=== PATIENT | female | born 1955 | race Caucasian/White ===

== ENCOUNTER 2017-01-09 16:24 | Inpatient (IN) | payer OTHER ==
[2017-01-09] VITALS (7 sets, daily range): BP systolic 96–126; BP diastolic 53–60; PULSE 69–113; RESP 17–19; TEMP 95.9–98.1; O2SAT 95–100
[~2017-01-09] VITALS: Ht 170.2 cm; Wt 75.7 kg
[~2017-01-09 16:24] MED LIST: ASPI81TA82 PO; CARV6.252 PO; COUM5TAB PO; CYMB30CA PO; ENOX60P SQ; GLUCTAB PO; HYDR-3133 PO; HYDR-3533 PO; LEVEMIR SQ; LISI-360 PO; MINI2CAP PO; SIMV40 PO
[2017-01-09] MEDS ORDERED: SODIUM CHLOR 0.9% 1000 ML INJ 1,000 ML IV SCH (16:50)
[2017-01-09] MEDS ORDERED: PANTOPRAZOLE INJ 80 MG in SODIUM CHLORIDE 0.9% INJ 100 ML IV SCH (16:50)
[2017-01-09] MEDS ORDERED: PANTOPRAZOLE INJ 80 MG in SODIUM CHLORIDE 0.9% INJ 35 ML IV ONE (16:50)
[2017-01-09] MEDS ORDERED: SODIUM CHLORIDE 0.9% FLUSH 10 ML FLUSH IVF PRN (17:00)
[2017-01-09] MEDS ORDERED: ONDANSETRON HCL 4 MG/2 ML VIAL IVP ONE (17:00)
[2017-01-09 17:19] LABS: AUTOMATED NEUTROPHIL # 4.3 TH/MM3 (1.8-7.7); BASOPHIL % 0.5 % (0.0-2.0); EOSINOPHIL # 0.2 TH/MM3 (0-0.4); EOSINOPHIL % 2.6 % (0.0-4.0); LYMPH % 29.1 % (9.0-44.0); LYMPHOCYTE # 2.1 TH/MM3 (1.0-4.8); MEAN CELL VOLUME 90.6 FL (80.0-100.0); MEAN CORPUSCULAR HEMOGLOBIN 29.8 PG (27.0-34.0); MEAN CORPUSCULAR HGB CONC 32.9 % (32.0-36.0); MONO % 8.7 % (0.0-8.0); NEUT % 59.1 % (16.0-70.0); PLATELET COUNT 245 TH/MM3 (150-450); RED BLOOD COUNT 2.08 MIL/MM3 (4.00-5.30); RED CELL DISTRIBUTION WIDTH 14.2 % (11.6-17.2); WHITE BLOOD COUNT 7.2 TH/MM3 (4.0-11.0)
[2017-01-09 17:22] LABS: HEMO FLAGS AUTO DIFF
[2017-01-09 17:24] LABS: BLOOD, URINE NEG (NEG); GLUCOSE,URINE 1000 mg/dL (NEG); KETONE, URINE NEG (NEG); NITRITE,URINE NEG (NEG); PH, URINE 5.5 (5.0-8.5); SQUAMOUS EPITHELIAL CELL URINE <1 /hpf (0-5); URINE COLOR YELLOW (YELLW/STRAW)
[2017-01-09] MEDS ORDERED: SIMV40TA PO (17:24)
[2017-01-09] MEDS ORDERED: DULO1CAP3 PO (17:24)
[2017-01-09] MEDS ORDERED: CARV6.252 PO (17:24)
[2017-01-09] MEDS ORDERED: NOVOLOGP2 SQ (17:24)
[2017-01-09] MEDS ORDERED: WARF-23 PO (17:24)
[2017-01-09] MEDS ORDERED: FENO48TA PO (17:24)
[2017-01-09] MEDS ORDERED: PRAZ5CAP PO (17:24)
[2017-01-09] MEDS ORDERED: LISI10TA3 PO (17:24)
[2017-01-09] MEDS ORDERED: HYDR-3516 PO (17:24)
[2017-01-09 17:25] LABS: CULTURE IF INDICATED CULT NOT INDICATED; HEMATOCRIT 18.8 % (35.0-46.0)
[2017-01-09 17:32] LABS: APTT (PATIENT) 21.5 SEC (24.3-30.1); PROTHROMBIN TIME - PATIENT 10.9 SEC (9.8-11.6)
[2017-01-09] MEDS ORDERED: HYDR-3133 PO (17:32)
[2017-01-09] MEDS ORDERED: ASPI81CH6 CHEW (17:32)
[2017-01-09] MEDS ORDERED: FISH500C PO (17:32)
[2017-01-09] MEDS ORDERED: FLUT55AE INH (17:32)
[2017-01-09] MEDS ORDERED: CORICAP PO (17:32)
[2017-01-09 17:38] LABS: ANION GAP 9 MEQ/L (5-15); AST (GOT) 18 U/L (15-37); BICARBONATE 24.7 MEQ/L (21.0-32.0); BLOOD UREA NITROGEN 19 MG/DL (7-18); CHLORIDE 104 MEQ/L (98-107); GLOMERULAR FILTRATION RATE 58 ML/MIN (>89); POTASSIUM 3.8 MEQ/L (3.5-5.1); SODIUM (NA) 138 MEQ/L (136-145)
[2017-01-09 17:39] LABS: ALT (GPT) 22 U/L (10-53)
[2017-01-09 17:41] LABS: ALKALINE PHOSPHATASE 49 U/L (45-117); TOTAL BILIRUBIN ADULT 0.4 MG/DL (0.2-1.0)
[2017-01-09] MEDS ORDERED: SODIUM CHLOR 0.9% 250 ML INJ 250 ML IV ONE (17:45)
[2017-01-09 17:56] LABS: PLATELET ESTIMATE SMEAR NORMAL (NORMAL); PLATELET MORPHOLOGY NORMAL (NORMAL); SCAN/DIFF AUTO DIFF CONFIRMED
--- NOTE | 2017-01-09 18:05 | PD ---
HPI Chief Complaint: Abnormal Results Time Seen by Provider: 16:34 Travel History International Travel<30 days: No Contact w/Intl Traveler<30days: No Traveled to known affect area: No History of Present Illness HPI Patient is a 61 year old female, on Coumadin, who comes in due to abnormal results. She is on Coumadin for an artificial valve, but has not been taking it for the past week when she was told her INR was 6. She says she had a CBC drawn that showed she had a Hgb of 5.8 and was told to come to the ED. Her says she has been very pale. She reports feeling tired and occasionally dizzy. She denies chest pain or SOB. She says she has not noticed blood in her stool. She denies any nausea or vomiting or abdominal pain. PFSH Past Medical History Hx Anticoagulant Therapy: Yes Heart Rhythm Problems: No Cancer: No Cardiovascular Problems: Yes High Cholesterol: Yes Cerebrovascular Accident: Yes Diabetes: Yes Patient Takes Glucophage: No Endocrine: Yes Genitourinary: No Hepatitis: No Hypertension: Yes Immune Disorder: No Neurologic: Yes Psychiatric: Yes (depression ) Reproductive: No Respiratory: No Seizures: Yes Thyroid Disease: No Past Surgical History Body Medical Devices: aortic valve replacement hardware in left elbow and bilateral leg. Cardiac Surgery: Yes (aortic valve replacement 1996) Insulin Pump: Yes Pacemaker: No Other Surgery: Yes Social History Alcohol Use: No Tobacco Use: No Substance Use: No Allergies-Medications (Allergen,Severity, Reaction): Coded Allergies: sulfamethoxazole (Unverified Allergy, Intermediate, black stool and 4 pills made her sick, 10/04/16) trimethoprim (Unverified Allergy, Intermediate, black stool and 4 pills made her sick, 10/04/16) Reported Meds & Prescriptions Reported Meds & Active Scripts Active Reported Aspirin Low Dose (Aspirin) 81 Mg Chew 81 Mg CHEW DAILY Coricidin HBP Chest Congestion (Dextromethorphan-Guaifenesin) 10-200 Mg Cap 1 Cap PO Q4H PRN Fish Oil ([place]-3 Fatty Acids) 60 Mg-90 Mg-500 Mg Cap 1,000 Mg PO DAILY [place] Respiclick Inh (Fluticasone Propionate) 55 Mcg/Actuation Aer.pow.ba 50 Mg INH BID Hydroxyzine HCl 25 Mg Tab 25 Mg PO BID PRN Fenofibrate 48 Mg Tab 48 Mg PO DAILY Simvastatin 40 Mg Tab 40 Mg PO HS Carvedilol 6.25 Mg Tab 6.25 Mg PO BID Warfarin 5 Mg Tab 5 Mg PO DAILY Hydrocodone-Acetamin 5-325 mg (Hydrocodone/Acetaminophen) 5 Mg-325 Mg Tablet 5- 325 Mg PO TID Lisinopril 10 Mg Tab 10 Mg PO DAILY Prazosin (Prazosin HCl) 5 Mg Cap 5 Mg PO HS Duloxetine DR (Duloxetine HCl) 60 Mg Capdr 60 Mg PO DAILY Novolog Inj (Insulin Aspart) 1,000 Unit/10 Ml Vial 90 Units SQ ONCE Review of Systems Except as stated in HPI: all other systems reviewed are Neg General / Constitutional: No: Fever, Chills Eyes: No: Blurred Vision HENT: Positive: Lightheadedness, No: Headaches Cardiovascular: No: Chest Pain or Discomfort Respiratory: No: Shortness of Breath Gastrointestinal: No: Nausea, Vomiting, Abdominal Pain Genitourinary: No: Dysuria, Hematuria Skin: Positive Change in Pigmentation, No Rash Neurologic: Positive: Dizziness, No: Syncope Physical Exam Narrative GENERAL: Awake and alert, in no acute distress. SKIN: Focused skin assessment warm/dry. Appears pale. HEAD: Atraumatic. Normocephalic. EYES: Pupils equal and round. No scleral icterus. EOMI ENT: Mucous membranes pink and moist. NECK: Trachea midline. No JVD. CARDIOVASCULAR: Regular rate and rhythm. No murmur appreciated. RESPIRATORY: No accessory muscle use. Clear to auscultation. Breath sounds equal bilaterally. GASTROINTESTINAL: Abdomen soft, non-tender, nondistended. MUSCULOSKELETAL: No obvious deformities. No clubbing. No cyanosis. No edema. NEUROLOGICAL: Awake and alert. No obvious cranial nerve deficits. Motor grossly within normal limits. Normal speech. PSYCHIATRIC: Appropriate mood and affect; insight and judgment normal. Data Data Last Documented VS Vital Signs Date Time Temp Pulse Resp B/P (MAP) Pulse Ox O2 Delivery O2 Flow Rate FiO2 01/09/17 17:00 90 18 01/09/17 16:50 98 01/09/17 16:27 98.1 Room Air Orders Orders Complete Blood Count With Diff (01/09/17 16:50) Comprehensive Metabolic Panel (01/09/17 16:50) Prothrombin Time / Inr (Pt) (01/09/17 16:50) Act Partial Throm Time (Ptt) (01/09/17 16:50) Urinalysis - C+S If Indicated (01/09/17 16:50) Type And Screen (01/09/17 16:50) Ecg Monitoring (01/09/17 16:50) Iv Access Insert/Monitor (01/09/17 16:50) Oximetry (01/09/17 16:50) Ondansetron Inj (Zofran Inj) (01/09/17 17:00) Sodium Chlor 0.9% 1000 Ml Inj (Ns 1000 M (01/09/17 16:50) Sodium Chloride 0.9% Flush (Ns Flush) (01/09/17 17:00) Sodium Chloride 0.9... W/Pantoprazole In (01/09/17 16:50) Sodium Chloride 0.9... W/Pantoprazole In (01/09/17 16:50) Red Blood Cells (Rbc) (01/09/17 17:33) Blood Product Administration (01/09/17 17:33) Sodium Chlor 0.9% 250 Ml Inj (Ns 250 Ml (01/09/17 17:45) Labs Laboratory Tests Test 01/09/17 16:55 White Blood Count 7.2 TH/MM3 Red Blood Count 2.08 MIL/MM3 Hemoglobin 6.2 GM/DL Hematocrit 18.8 % Mean Corpuscular Volume 90.6 FL Mean Corpuscular Hemoglobin 29.8 PG Mean Corpuscular Hemoglobin Concent 32.9 % Red Cell Distribution Width 14.2 % Platelet Count 245 TH/MM3 Mean Platelet Volume 9.5 FL Neutrophils (%) (Auto) 59.1 % Lymphocytes (%) (Auto) 29.1 % Monocytes (%) (Auto) 8.7 % Eosinophils (%) (Auto) 2.6 % Basophils (%) (Auto) 0.5 % Neutrophils # (Auto) 4.3 TH/MM3 Lymphocytes # (Auto) 2.1 TH/MM3 Monocytes # (Auto) 0.6 TH/MM3 Eosinophils # (Auto) 0.2 TH/MM3 Basophils # (Auto) 0.0 TH/MM3 CBC Comment AUTO DIFF Prothrombin Time 10.9 SEC Prothromb Time International Ratio 1.0 RATIO Activated Partial Thromboplast Time 21.5 SEC Urine Color YELLOW Urine Turbidity CLEAR Urine pH 5.5 Urine Specific [place] 1.011 Urine Protein NEG mg/dL Urine Glucose (UA) 1000 mg/dL Urine Ketones NEG mg/dL Urine Occult Blood NEG Urine Nitrite NEG Urine Bilirubin NEG Urine Urobilinogen LESS THAN 2.0 MG/DL Urine Leukocyte Esterase MOD Urine RBC LESS THAN 1 /hpf Urine WBC 4 /hpf Urine Squamous Epithelial Cells <1 /hpf Blood Urea Nitrogen 19 MG/DL Creatinine 0.98 MG/DL Random Glucose 152 MG/DL Total Protein 7.3 GM/DL Albumin 3.9 GM/DL Calcium Level 9.1 MG/DL Alkaline Phosphatase 49 U/L Aspartate Amino Transf (AST/SGOT) 18 U/L Alanine Aminotransferase (ALT/SGPT) 22 U/L Total Bilirubin 0.4 MG/DL Sodium Level 138 MEQ/L Potassium Level 3.8 MEQ/L Chloride Level 104 MEQ/L Carbon Dioxide Level 24.7 MEQ/L Anion Gap 9 MEQ/L Estimat Glomerular Filtration Rate 58 ML/MIN MDM Medical Decision Making Medical Screen Exam Complete: Yes Emergency Medical Condition: Yes Medical Record Reviewed: Yes Differential Diagnosis GI bleed versus anemia versus coagulopathy Narrative Course Patient is a 61-year-old female who comes in due to a low hemoglobin. She is occult blood positive on exam. IV established, labs sent. Labs show a Hgb of 6.2. INR is 1.0. 2 units of blood ordered. Given Protonix. Patient admitted for further management. HemaPrompt Point of Care Internal Pos. & Neg. Controls: Passed Fecal Specimen Occult Blood: Positive Diagnosis Primary Impression: GI bleed Qualified Codes: K92.2 - Gastrointestinal hemorrhage, unspecified Additional Impression: Anemia Qualified Codes: D64.9 - Anemia, unspecified Admitting Information Admitting Physician Requests: Admit Tierra Benjamin MD Jan 09, 2017 18:05
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
[2017-01-09] MEDS ORDERED: SODIUM CHLORIDE 0.9% FLUSH 10 ML FLUSH IV FLUSH PRN (20:45)
[2017-01-09] MEDS: INSULIN ASPART SUPPLEMENTAL SCALE SQ SCH (21:00)
[2017-01-09] MEDS ORDERED: FLUTICASONE PROPIONATE INH SCH (21:00)
[2017-01-09] MEDS: hydrOXYzine HCL 25 MG TAB PO PRN (22:19)
[2017-01-09] MEDS: PRAVASTATIN SOD 80 MG TAB PO SCH (22:20)
[2017-01-09] MEDS: SODIUM CHLORIDE 0.9% FLUSH 10 ML FLUSH IV FLUSH SCH (22:20)
[2017-01-09] MEDS: ACETAMINOPHEN/HYDROcodone 325 MG/5 MG TAB PO PRN (22:20)
[2017-01-09] MEDS: INSULIN DETEMIR 100 UNITS/ML VIAL SQ SCH (22:28)
[2017-01-10] VITALS (8 sets, daily range): BP systolic 93–168; BP diastolic 55–77; PULSE 69–90; RESP 16–18; TEMP 95.2–98.7; O2SAT 92–98
[2017-01-10 05:55] LABS: HEMATOCRIT 24.8 % (35.0-46.0); REVIEW FLAG FINAL
[2017-01-10 06:14] LABS: ALKALINE PHOSPHATASE 45 U/L (45-117); ALT (GPT) 20 U/L (10-53); ANION GAP 9 MEQ/L (5-15); AST (GOT) 18 U/L (15-37); BICARBONATE 24.3 MEQ/L (21.0-32.0); BLOOD UREA NITROGEN 13 MG/DL (7-18); CHLORIDE 109 MEQ/L (98-107); GLOMERULAR FILTRATION RATE 69 ML/MIN (>89); SODIUM (NA) 142 MEQ/L (136-145); TOTAL BILIRUBIN ADULT 1.7 MG/DL (0.2-1.0)
[2017-01-10] MEDS: INSULIN DETEMIR 100 UNITS/ML VIAL SQ SCH ×2 (08:56→22:24)
[2017-01-10] MEDS: PANTOPRAZOLE SOD 40 MG DELAYED RELEASE TAB PO SCH (08:56)
[2017-01-10] MEDS: FENOFIBRATE 48 MG TAB PO SCH (08:56)
[2017-01-10] MEDS: DULoxetine HCl DR 60 MG CAP PO SCH (08:56)
[2017-01-10] MEDS: ACETAMINOPHEN/HYDROcodone 325 MG/5 MG TAB PO PRN ×2 (08:56→15:10)
[2017-01-10] MEDS: SODIUM CHLORIDE 0.9% FLUSH 10 ML FLUSH IV FLUSH SCH ×2 (08:57→20:34)
[2017-01-10] MEDS: INSULIN ASPART SUPPLEMENTAL SCALE SQ SCH ×4 (08:57→21:00)
--- NOTE | 2017-01-10 09:02 | HHI.PR ---
Subjective Remarks No new complaints. Objective Vitals Vital Signs Date Time Temp Pulse Resp B/P (MAP) Pulse Ox O2 Delivery O2 Flow Rate FiO2 01/10/17 04:00 97.4 76 18 100/58 (72) 95 01/10/17 00:58 98.4 84 17 93/56 92 01/10/17 00:00 98.0 83 18 111/58 (75) 93 01/09/17 22:29 97.5 92 18 105/56 96 01/09/17 22:08 95 01/09/17 22:04 96.8 106 19 126/60 01/09/17 20:30 95.9 108 18 120/57 (78) 100 01/09/17 20:00 01/09/17 19:21 69 18 96/53 (67) 100 01/09/17 17:00 90 18 01/09/17 16:50 91 18 98 01/09/17 16:27 98.1 113 17 109/58 (75) 100 Room Air Result Diagram: 01/10/175 01/10/17 0445 Other Results Laboratory Tests Test 01/09/17 16:55 01/10/17 04:45 White Blood Count 7.2 TH/MM3 Red Blood Count 2.08 MIL/MM3 Hemoglobin 6.2 GM/DL 8.4 GM/DL Hematocrit 18.8 % 24.8 % Mean Corpuscular Volume 90.6 FL Mean Corpuscular Hemoglobin 29.8 PG Mean Corpuscular Hemoglobin Concent 32.9 % Red Cell Distribution Width 14.2 % Platelet Count 245 TH/MM3 Mean Platelet Volume 9.5 FL Neutrophils (%) (Auto) 59.1 % Lymphocytes (%) (Auto) 29.1 % Monocytes (%) (Auto) 8.7 % Eosinophils (%) (Auto) 2.6 % Basophils (%) (Auto) 0.5 % Neutrophils # (Auto) 4.3 TH/MM3 Lymphocytes # (Auto) 2.1 TH/MM3 Monocytes # (Auto) 0.6 TH/MM3 Eosinophils # (Auto) 0.2 TH/MM3 Basophils # (Auto) 0.0 TH/MM3 CBC Comment AUTO DIFF Differential Comment AUTO DIFF CONFIRMED Platelet Estimate NORMAL Platelet Morphology Comment NORMAL Prothrombin Time 10.9 SEC Prothromb Time International Ratio 1.0 RATIO Activated Partial Thromboplast Time 21.5 SEC Urine Color YELLOW Urine Turbidity CLEAR Urine pH 5.5 Urine Specific [place] 1.011 Urine Protein NEG mg/dL Urine Glucose (UA) 1000 mg/dL Urine Ketones NEG mg/dL Urine Occult Blood NEG Urine Nitrite NEG Urine Bilirubin NEG Urine Urobilinogen LESS THAN 2.0 MG/DL Urine Leukocyte Esterase MOD Urine RBC LESS THAN 1 /hpf Urine WBC 4 /hpf Urine Squamous Epithelial Cells <1 /hpf Blood Urea Nitrogen 19 MG/DL 13 MG/DL Creatinine 0.98 MG/DL 0.84 MG/DL Random Glucose 152 MG/DL 156 MG/DL Total Protein 7.3 GM/DL 5.9 GM/DL Albumin 3.9 GM/DL 3.1 GM/DL Calcium Level 9.1 MG/DL 8.1 MG/DL Alkaline Phosphatase 49 U/L 45 U/L Aspartate Amino Transf (AST/SGOT) 18 U/L 18 U/L Alanine Aminotransferase (ALT/SGPT) 22 U/L 20 U/L Total Bilirubin 0.4 MG/DL 1.7 MG/DL Sodium Level 138 MEQ/L 142 MEQ/L Potassium Level 3.8 MEQ/L 4.0 MEQ/L Chloride Level 104 MEQ/L 109 MEQ/L Carbon Dioxide Level 24.7 MEQ/L 24.3 MEQ/L Anion Gap 9 MEQ/L 9 MEQ/L Estimat Glomerular Filtration Rate 58 ML/MIN 69 ML/MIN Objective Remarks General: NAD, AAOx3 Chest: CTA Cardiac: Regular Abd: +BS, soft ND/NT Ext: No edema A/P Problem List: (1) GI bleed ICD Codes: K92.2 - Gastrointestinal hemorrhage, unspecified Status: Acute Plan: - Pt is a 61 y/o female with type 1 diabetes on insulin pump, hx of mechanical aortic valve (placed in 1996) on chronic anticoagulation with Coumadin. - She was sent to the ED on 01/09/17 for anemia. - It is noted that her INR was 6.2 on January 05 and was instructed to hold her warfarin. Repeat INR on 01/09 with INR 1.0, but her hemoglobin was down to 5.8. - Pt complained of fatigue, shortness of breath and palpitations since of last week. She reports feeling tired and occasionally dizzy. - Repeat hemoglobin in the ED was 6. - Pt noted to be Hemoccult positive in the ED with reported dark stools - Pts last EGD/colonoscopy was 08/21/2014 for anemia and GIB which noted gastritis , hiatal hernia, polyps in the hepatic flexure and the rectum, and internal hemorrhoids. - She had an outpt capsule endoscopy (10/01/2014) --> which noted thick folds in the jejunum and possible healed ulcer in the jejunum - Pt has been transfused with 2 units of PRBCs - Case d/w GI Service. Pt will undergo EGD/Colonoscopy 01/11 - will give lovenox 70mg once, re: artificial valve - Repeat Hgb (01/10) is 8.4 - Pt is on Protonix 40mg po daily - Monitor H/H closely - Supportive care (2) Anemia ICD Codes: D64.9 - Anemia, unspecified Status: Acute Plan: - See above (3) Mechanical heart valve present ICD Codes: Z95.2 - Presence of prosthetic heart valve Status: Chronic Plan: - EGD/colonoscopy 01/11 - lovenox 70mg once - Pt will likely need bridging with Lovenox as soon as his GI procedures done and resumption of warfarin. (4) Type 1 diabetes ICD Codes: E10.9 - Type 1 diabetes mellitus without complications Status: Chronic Plan: - NovoLog SSI - Levemir 5 units Q12H - Accu checks - Her last Hgb A1c was 6.7 December 09, 2016 - Pt was recently started on insulin pump which will be disabled during hospital stay. (5) Anxiety ICD Codes: F41.9 - Anxiety disorder, unspecified Plan: - Continue home medication (6) Lumbar radiculopathy ICD Codes: M54.16 - Radiculopathy, lumbar region Plan: - Continue home meds (7) Hypertension ICD Codes: I10 - Essential (primary) hypertension Plan: Medication for now as blood pressure systolically is in the low 100s. Assessment and Plan Patient examined. Assessment and plan formulated with Vanessa Darden PA-C. I agree with the above. - Case d/w GI service - EGD/Colonoscopy 01/11 - lovenox 70mg once - Pt will need to be placed on lovenox following endoscopy until coumadin is again therapeutic - follow Hg level - serial CBCs Problem Qualifiers (1) GI bleed: Qualified Codes: K92.2 - Gastrointestinal hemorrhage, unspecified (2) Anemia: Qualified Codes: D64.9 - Anemia, unspecified (3) Hypertension: Qualified Codes: I10 - Essential (primary) hypertension Vanessa Darden Jan 10, 2017 09:02 Harry Pierre DO Jan 10, 2017 11:02
--- NOTE | 2017-01-10 11:48 | PD.CONS ---
HPI History of Present Illness This is a 61 year old female who is on chronic anticoagulation with Coumadin for mechanical heart valve and was referred to the emergency room for evaluation of abnormal labs with anemia. She was told that she had an INR of 6.0 about a week ago and has been off of her coumadin. On admission, she was noted to have an H/H of 6.2/18.8. INR 1.0. She was given 2 units of PRBC and her HH is currently 8.4/24.8. She was evaluated with EGD and colonoscopy () and this revealed gastritis in the antrum, retroflexion views revealed a hiatal hernia, diminutive polyp at the hepatic flexure, cold biopsy with complete removal, diminutive polyps in the rectum, s/p removal, internal hemorrhoids. Pathology noted gastric antral mucosa without significant histologic abnormality, fracture polyp was colonic mucosa without significant histologic abnormality, rectal polyp was hyperplastic. It is recommended that she have a capsule endoscopy and repeat colonoscopy in 3 years. She then had a capsule endoscopy (10/01/14) and this revealed thick folds of jejunum, possible healed ulcer in the jejunum. It was recommended that she have an enteroscopy with jejunal biopsy, celiac panel, and IBD panel. Celiac panel was negative. I do not see where the IBD panel was done and she did not follow up for enteroscopy. She reports that last Monday she had an elevated INR fo 6.0 and she stopped her Coumadin. She has since been having generalized weakness and some shortness of breath with exertion, but no obvious GI bleeding. She denies any nausea, vomiting, heartburn, abdominal pain, constipation, diarrhea, melena , or hematochezia. In the ER she was noted to have Hemoccult positive stool. GI has been consulted for further evaluation and treatment. (Coleen Sewell) PFSH Past Medical History Chronic anticoagulation for mechanical heart valve Anxiety History of valvular heart disease Carpal tunnel syndrome Chronic kidney disease stage II Chronic pain Diabetes History of TBI Hypertension Hyperlipidemia Peripheral artery disease Paroxysmal atrial fibrillation PT SD History of pulmonary embolism Hyperplastic polyps Gastritis History of possible jejunal ulcer Vitamin D deficiency Past Surgical History Aortic valve repair Aortic valve replacement I&D of pilonidal cyst IVC filter Knee arthroscopically Knee surgery on the right ORIF Olecranon ORIF of tibial plateau fracture (Coleen Sewell) Coded Allergies: sulfamethoxazole (Unverified Allergy, Intermediate, black stool and 4 pills made her sick, 10/04/16) trimethoprim (Unverified Allergy, Intermediate, black stool and 4 pills made her sick, 10/04/16) Medications Allergies Coded Allergies Type Severity Reaction Last Updated Verified sulfamethoxazole Allergy Intermediate black stool and 4 pills made her sick No trimethoprim Allergy Intermediate black stool and 4 pills made her sick No Active Scripts Medications Dose Route/Sig Max Daily Dose Days Date Category Aspirin Low Dose (Aspirin) 81 Mg Chew 81 Mg CHEW DAILY 01/09/17 Reported Coricidin HBP Chest Congestion (Dextromethorphan-Guaifenesin) 10-200 Mg Cap 1 Cap PO Q4H PRN 01/09/17 Reported Fish Oil ([place]-3 Fatty Acids) 60 Mg-90 Mg-500 Mg Cap 1,000 Mg PO DAILY 01/09/17 Reported Armonair Respiclick Inh (Fluticasone Propionate) 55 Mcg/Actuation Aer.pow.ba 50 Mg INH BID 01/09/17 Reported Hydroxyzine HCl 25 Mg Tab 25 Mg PO BID PRN 01/09/17 Reported Fenofibrate 48 Mg Tab 48 Mg PO DAILY 01/09/17 Reported Simvastatin 40 Mg Tab 40 Mg PO HS 01/09/17 Reported Carvedilol 6.25 Mg Tab 6.25 Mg PO BID 01/09/17 Reported Warfarin 5 Mg Tab 5 Mg PO DAILY 01/09/17 Reported Hydrocodone-Acetamin 5-325 mg (Hydrocodone/Acetaminophen) 5 Mg-325 Mg Tablet 5-325 Mg PO TID 01/09/17 Reported Lisinopril 10 Mg Tab 10 Mg PO DAILY 01/09/17 Reported Prazosin (Prazosin HCl) 5 Mg Cap 5 Mg PO HS 01/09/[address] (Duloxetine HCl) 60 Mg Capdr 60 Mg PO DAILY 01/09/17 Reported Novolog Inj (Insulin Aspart) 1,000 Unit/10 Ml Vial 90 Units SQ ONCE 01/09/17 Reported Family History Brother had colon cancer One sister with breast cancer One sister with thyroid cancer Social History Quit smoking 1979, smoked 1 PPD x 2 years Occasional ETOH use (Coleen Sewell) Review of Systems Constitutional: COMPLAINS OF: Fatigue, DENIES: Fever, Weight loss, Chills Respiratory: COMPLAINS OF: Shortness of breath, DENIES: Cough Cardiovascular: DENIES: Chest pain Gastrointestinal: DENIES: Abdominal pain, Black stools, Bloody stools, Constipation, Diarrhea, Nausea, Vomiting, Swelling of Abdomen, Heartburn, Hematemesis Musculoskeletal: COMPLAINS OF: Joint pain Hematologic/lymphatic: DENIES: Bruising Psychiatric: DENIES: Confusion (SewellColeen) GI Exam Vitals I&O Vital Signs Date Time Temp Pulse Resp B/P (MAP) Pulse Ox O2 Delivery O2 Flow Rate FiO2 01/10/17 04:00 97.4 76 18 100/58 (72) 95 01/10/17 00:58 98.4 84 17 93/56 92 01/10/17 00:00 98.0 83 18 111/58 (75) 93 01/09/17 22:29 97.5 92 18 105/56 96 01/09/17 22:08 95 01/09/17 22:04 96.8 106 19 126/60 01/09/17 20:30 95.9 108 18 120/57 (78) 100 01/09/17 20:00 01/09/17 19:21 69 18 96/53 (67) 100 01/09/17 17:00 90 18 01/09/17 16:50 91 18 98 01/09/17 16:27 98.1 113 17 109/58 (75) 100 Room Air I/O 01/09/17 01/09/17 01/09/17 01/10/17 01/10/17 01/10/17 07:00 15:00 23:00 07:00 15:00 23:00 Intake Total 2294 ml Output Total 600 ml Balance 1694 ml Intake Oral 480 ml IV Total 1100 ml Packed Cells 644 ml Blood Product IV Normal Saline Flush 70 ml Output Urine Total 600 ml # Bowel Movements 0 Laboratory Test 01/09/17 16:55 01/10/17 04:45 White Blood Count 7.2 TH/MM3 Red Blood Count 2.08 MIL/MM3 Hemoglobin 6.2 GM/DL 8.4 GM/DL Hematocrit 18.8 % 24.8 % Mean Corpuscular Volume 90.6 FL Mean Corpuscular Hemoglobin 29.8 PG Mean Corpuscular Hemoglobin Concent 32.9 % Red Cell Distribution Width 14.2 % Platelet Count 245 TH/MM3 Mean Platelet Volume 9.5 FL Neutrophils (%) (Auto) 59.1 % Lymphocytes (%) (Auto) 29.1 % Monocytes (%) (Auto) 8.7 % Eosinophils (%) (Auto) 2.6 % Basophils (%) (Auto) 0.5 % Neutrophils # (Auto) 4.3 TH/MM3 Lymphocytes # (Auto) 2.1 TH/MM3 Monocytes # (Auto) 0.6 TH/MM3 Eosinophils # (Auto) 0.2 TH/MM3 Basophils # (Auto) 0.0 TH/MM3 CBC Comment AUTO DIFF Differential Comment AUTO DIFF CONFIRMED Platelet Estimate NORMAL Platelet Morphology Comment NORMAL Prothrombin Time 10.9 SEC Prothromb Time International Ratio 1.0 RATIO Activated Partial Thromboplast Time 21.5 SEC Urine Color YELLOW Urine Turbidity CLEAR Urine pH 5.5 Urine Specific [place] 1.011 Urine Protein NEG mg/dL Urine Glucose (UA) 1000 mg/dL Urine Ketones NEG mg/dL Urine Occult Blood NEG Urine Nitrite NEG Urine Bilirubin NEG Urine Urobilinogen LESS THAN 2.0 MG/DL Urine Leukocyte Esterase MOD Urine RBC LESS THAN 1 /hpf Urine WBC 4 /hpf Urine Squamous Epithelial Cells <1 /hpf Blood Urea Nitrogen 19 MG/DL 13 MG/DL Creatinine 0.98 MG/DL 0.84 MG/DL Random Glucose 152 MG/DL 156 MG/DL Total Protein 7.3 GM/DL 5.9 GM/DL Albumin 3.9 GM/DL 3.1 GM/DL Calcium Level 9.1 MG/DL 8.1 MG/DL Alkaline Phosphatase 49 U/L 45 U/L Aspartate Amino Transf (AST/SGOT) 18 U/L 18 U/L Alanine Aminotransferase (ALT/SGPT) 22 U/L 20 U/L Total Bilirubin 0.4 MG/DL 1.7 MG/DL Sodium Level 138 MEQ/L 142 MEQ/L Potassium Level 3.8 MEQ/L 4.0 MEQ/L Chloride Level 104 MEQ/L 109 MEQ/L Carbon Dioxide Level 24.7 MEQ/L 24.3 MEQ/L Anion Gap 9 MEQ/L 9 MEQ/L Estimat Glomerular Filtration Rate 58 ML/MIN 69 ML/MIN Physical Examination HEENT: Normocephalic; atraumatic; no jaundice CHEST: CTA CARDIAC: RRR ABDOMEN: Soft, nondistended, nontender; no hepatosplenomegaly; bowel sounds are present in all four quadrants. EXTREMITIES: No clubbing, cyanosis, or edema. SKIN: Normal; no rash; no jaundice. UTILITY TELLER: No focal deficits; alert and oriented times three. (Coleen Sewell) Assessment and Plan Plan ASSESSMENT: - Severe anemia with Hemoccult (+) Stool. Pt on chronic anticoagulation with Coumadin for mechanical heart valve. Stopped her Coumadin last Monday for INR 6.0. Referred to ER for anemia and noted to have H/H of 6.2/18.8. INR 1.0. She was given 2 units PRBC and her HH is currently 8.4/24.8. EGD and colonoscopy (08/21/14) and this revealed gastritis in the antrum, retroflexion views revealed a hiatal hernia, diminutive polyp at the hepatic flexure, cold biopsy with complete removal, diminutive polyps in the rectum, s/p removal, internal hemorrhoids. Pathology noted gastric antral mucosa without significant histologic abnormality, fracture polyp was colonic mucosa without significant histologic abnormality, rectal polyp was hyperplastic. It is recommended that she have a capsule endoscopy and repeat colonoscopy in 3 years. She then had a capsule endoscopy (10/01/14) and this revealed thick folds of jejunum, possible healed ulcer in the jejunum. It was recommended that she have an enteroscopy with jejunal biopsy, celiac panel, and IBD panel. Celiac panel was negative. Did not have enteroscopy. No GI symptoms or obvious active bleeding. Will plan for EGD/Enteroscopy/Colonoscopy in am. D/W attending with regards to anticoagulation. - Chronic anticoagulation for mechanical aortic heart valve. INR 1.0. Plan is for one dose of lovenox today. - CKD, DM, Chronic pain, HTN, Hyperlipidemia, PAD, Hx PE, PTSD per attending. PLAN: - Plan for EGD with enteroscopy/Colonoscopy tomorrow - Obtain consents - Clear liquids - NPO - Golytely prep - Monitor HH - Transfuse as needed - Supportive care - Further recommendations to follow based on results of above - Pt seen and examined by Dr. Johnson and myself and this note is written on his behalf (Coleen Sewell) Physician Comments Seen and examined with JEAN CARLOS, no active bleeding at present. Enteroscopy/ colonoscopy planned for tomorrow. Previous dorsey including capsule endoscopy reviewed with the patient and at the bedside. Will follow, thankkimu (Ron Johnson MD) SewellJonathan smithmino EVANGELISTA Jan 10, 2017 11:47 Ron Johnson MD Jan 10, 2017 16:20
[2017-01-10] MEDS ORDERED: HYDROmorphone HCL PF 1 MG/ML VIAL IV PUSH PRN (12:00)
[2017-01-10] MEDS ORDERED: ENOXAPARIN SODIUM 80 MG/0.8 ML SYRINGE SQ ONE (12:15)
[2017-01-10] MEDS ORDERED: PEG (High)/E-LYTE SOLN 4000 ML BTL PO ONE (16:00)
[2017-01-10 16:18] LABS: HEMATOCRIT 24.2 % (35.0-46.0); REVIEW FLAG FINAL
--- NOTE | 2017-01-10 19:03 | EKG ---
Date Performed: 01/09/2017 Time Performed: 21:30:52 PTAGE: 61 years EKG: Sinus rhythm LEFT BUNDLE BRANCH BLOCK Since previous tracing, no significant change noted ABNORMAL ECG PREVIOUS TRACING : 08/21/2014 08.37 DOCTOR: Thomas Marcano Interpretating Date/Time 01/10/2017 19:02:22
[2017-01-10] MEDS: PRAVASTATIN SOD 80 MG TAB PO SCH (20:34)
[2017-01-10] MEDS: hydrOXYzine HCL 25 MG TAB PO PRN (20:34)
[2017-01-11 00:41] VITALS: BP 105/67; PULSE 80; RESP 18; TEMP 97.6; O2SAT 96
[2017-01-11 01:00] LABS: HEMATOCRIT 23.1 % (35.0-46.0); REVIEW FLAG FINAL
[2017-01-11] MEDS ORDERED: LACTATED RINGER'S 1000 ML IV PRN (01:45)
[2017-01-11] MEDS ORDERED: SODIUM CHLORID 0.9% 500 ML IV PRN (01:45)
[2017-01-11] MEDS: ACETAMINOPHEN/HYDROcodone 325 MG/5 MG TAB PO PRN ×2 (03:25→20:23)
[2017-01-11 08:00] VITALS: BP 128/62; PULSE 95; RESP 16; TEMP 97.3; O2SAT 93
[2017-01-11] MEDS: INSULIN ASPART SUPPLEMENTAL SCALE SQ SCH ×4 (08:00→20:12)
[2017-01-11 08:32] LABS: HEMATOCRIT 24.1 % (35.0-46.0); REVIEW FLAG FINAL
[2017-01-11] MEDS: SODIUM CHLORIDE 0.9% FLUSH 10 ML FLUSH IV FLUSH SCH ×2 (09:00→20:10)
--- NOTE | 2017-01-11 09:11 | HHI.PR ---
Subjective Remarks Patient awake and alert reports no events overnight offers no complaints at this time plan for EGD/Coloscopy this AM Objective Vitals Vital Signs Date Time Temp Pulse Resp B/P (MAP) Pulse Ox O2 Delivery O2 Flow Rate FiO2 01/11/17 00:41 97.6 80 18 105/67 (80) 96 01/10/17 21:32 96 01/10/17 20:19 95.2 70 18 168/77 (107) 96 01/10/17 16:22 16 01/10/17 16:00 98.7 83 16 99/55 (70) 95 01/10/17 12:00 98.3 69 16 102/57 (72) 98 Result Diagram: 01/11/17 0750 01/10/17 0445 Other Results Laboratory Tests Test 01/09/17 16:55 01/10/17 04:45 01/10/17 16:02 01/11/17 00:14 White Blood Count 7.2 TH/MM3 Red Blood Count 2.08 MIL/MM3 Hemoglobin 6.2 GM/DL 8.4 GM/DL 8.0 GM/DL 7.7 GM/DL Hematocrit 18.8 % 24.8 % 24.2 % 23.1 % Mean Corpuscular Volume 90.6 FL Mean Corpuscular Hemoglobin 29.8 PG Mean Corpuscular Hemoglobin Concent 32.9 % Red Cell Distribution Width 14.2 % Platelet Count 245 TH/MM3 Mean Platelet Volume 9.5 FL Neutrophils (%) (Auto) 59.1 % Lymphocytes (%) (Auto) 29.1 % Monocytes (%) (Auto) 8.7 % Eosinophils (%) (Auto) 2.6 % Basophils (%) (Auto) 0.5 % Neutrophils # (Auto) 4.3 TH/MM3 Lymphocytes # (Auto) 2.1 TH/MM3 Monocytes # (Auto) 0.6 TH/MM3 Eosinophils # (Auto) 0.2 TH/MM3 Basophils # (Auto) 0.0 TH/MM3 CBC Comment AUTO DIFF Differential Comment AUTO DIFF CONFIRMED Platelet Estimate NORMAL Platelet Morphology Comment NORMAL Prothrombin Time 10.9 SEC Prothromb Time International Ratio 1.0 RATIO Activated Partial Thromboplast Time 21.5 SEC Urine Color YELLOW Urine Turbidity CLEAR Urine pH 5.5 Urine Specific Hart 1.011 Urine Protein NEG mg/dL Urine Glucose (UA) 1000 mg/dL Urine Ketones NEG mg/dL Urine Occult Blood NEG Urine Nitrite NEG Urine Bilirubin NEG Urine Urobilinogen LESS THAN 2.0 MG/DL Urine Leukocyte Esterase MOD Urine RBC LESS THAN 1 /hpf Urine WBC 4 /hpf Urine Squamous Epithelial Cells <1 /hpf Blood Urea Nitrogen 19 MG/DL 13 MG/DL Creatinine 0.98 MG/DL 0.84 MG/DL Random Glucose 152 MG/DL 156 MG/DL Total Protein 7.3 GM/DL 5.9 GM/DL Albumin 3.9 GM/DL 3.1 GM/DL Calcium Level 9.1 MG/DL 8.1 MG/DL Alkaline Phosphatase 49 U/L 45 U/L Aspartate Amino Transf (AST/SGOT) 18 U/L 18 U/L Alanine Aminotransferase (ALT/SGPT) 22 U/L 20 U/L Total Bilirubin 0.4 MG/DL 1.7 MG/DL Sodium Level 138 MEQ/L 142 MEQ/L Potassium Level 3.8 MEQ/L 4.0 MEQ/L Chloride Level 104 MEQ/L 109 MEQ/L Carbon Dioxide Level 24.7 MEQ/L 24.3 MEQ/L Anion Gap 9 MEQ/L 9 MEQ/L Estimat Glomerular Filtration Rate 58 ML/MIN 69 ML/MIN Test 01/11/17 07:50 Hemoglobin 8.1 GM/DL Hematocrit 24.1 % Objective Remarks General: NAD, AAOx3 Chest: CTA Cardiac: Regular Abd: +BS, soft ND/NT Ext: No edema A/P Problem List: (1) GI bleed ICD Codes: K92.2 - Gastrointestinal hemorrhage, unspecified Status: Acute Plan: - Pt is a 61 y/o female with type 1 diabetes on insulin pump, hx of mechanical aortic valve (placed in 1996) on chronic anticoagulation with Coumadin. - She was sent to the ED on 01/09/17 for anemia. - It is noted that her INR was 6.2 on January 05 and was instructed to hold her warfarin. Repeat INR on 01/09 with INR 1.0, but her hemoglobin was down to 5.8. - Pt complained of fatigue, shortness of breath and palpitations since of last week. She reports feeling tired and occasionally dizzy. - Repeat hemoglobin in the ED was 6. - Pt noted to be Hemoccult positive in the ED with reported dark stools - Pts last EGD/colonoscopy was 08/21/2014 for anemia and GIB which noted gastritis , hiatal hernia, polyps in the hepatic flexure and the rectum, and internal hemorrhoids. - She had an outpt capsule endoscopy (10/01/2014) --> which noted thick folds in the jejunum and possible healed ulcer in the jejunum - Pt has been transfused with 2 units of PRBCs - Case d/w GI Service. Pt will undergo EGD/Colonoscopy 01/11 - given lovenox 70mg (01/10) once, re: artificial valve - Repeat Hgb (01/10) is 8.4 -> 7.7 -> 8.1 (01/11) - Pt is on Protonix 40mg po daily - Monitor H/H closely - Supportive care (2) Anemia ICD Codes: D64.9 - Anemia, unspecified Status: Acute Plan: - See above (3) Mechanical heart valve present ICD Codes: Z95.2 - Presence of prosthetic heart valve Status: Chronic Plan: - EGD/colonoscopy 01/11 - lovenox 70mg once (01/10) - Pt will likely need bridging with Lovenox as soon as his GI procedures done and resumption of warfarin. (4) Type 1 diabetes ICD Codes: E10.9 - Type 1 diabetes mellitus without complications Status: Chronic Plan: - NovoLog SSI - Levemir 5 units Q12H - Accu checks - Her last Hgb A1c was 6.7 December 09, 2016 - Pt was recently started on insulin pump which will be disabled during hospital stay. (5) Anxiety ICD Codes: F41.9 - Anxiety disorder, unspecified Plan: - Continue home medication (6) Lumbar radiculopathy ICD Codes: M54.16 - Radiculopathy, lumbar region Plan: - Continue home meds (7) Hypertension ICD Codes: I10 - Essential (primary) hypertension Plan: Medication for now as blood pressure systolically is in the low 100s. Assessment and Plan Patient examined. Assessment and plan formulated with Carmelita Murry PA-C. I agree with the above. gib/acute blood loss anemia egd/colon reviewed. discussed with dr Johnson. no active bleeding now and he cauterized gastric/duodenum avm's 2 units blood given. anemia sx's resolved. pt has st srini mechanical avr. resume coumadin and lovenox bridge. pt was using 8mg daily so will lower the dose. plan [facility] to check inr and then send to her cashier host/hostess for monitoring. Problem Qualifiers (1) GI bleed: Qualified Codes: K92.2 - Gastrointestinal hemorrhage, unspecified (2) Anemia: Qualified Codes: D64.9 - Anemia, unspecified (3) Hypertension: Qualified Codes: I10 - Essential (primary) hypertension Carmelita Murry Jan 11, 2017 09:11 Jewel Nevarez MD Jan 11, 2017 15:11
--- NOTE | 2017-01-11 11:11 | GIPROC ---
[facility] [address] [facility]. [facility], [address] EGD PROCEDURE REPORT EXAM DATE: 01/11/2017 PATIENT NAME: Nai Cuevas MR #: [id number] BIRTHDATE: 1955 ATTENDING: Ron Johnson MD ORDER #: [id number] FIBER OPTIC ASSEMBLER: Maribell Hutchins and Charmaine Inman STATUS: inpatient INDICATIONS: The patient is a 61 yr old female here for an EGD due to iron deficiency anemia and AV malformation PROCEDURE PERFORMED: EGD w/ ablation MEDICATIONS: None and Per Anesthesia. TOPICAL ANESTHETIC: CONSENT: The patient understands the risks and benefits of the procedure and understands that these risks include, but are not limited to: sedation, allergic reaction, infection, perforation and/or bleeding. Alternative means of evaluation and treatment include, among others: physical exam, x-rays, and/or surgical intervention. The patient elects to proceed with this endoscopic procedure. medical equipment was checked for proper function. Hand hygiene and appropriate measures for infection prevention was taken. After the risks, benefits and alternatives of the procedure were thoroughly explained, Informed consent was verified, confirmed and timeout was successfully executed by the treatment team. The patient was anesthetized with topical anesthesia and the Pentax [id number] endoscope was introduced through the mouth and advanced to the proximal jejunum. Retroflexed views revealed no abnormalities The gastroscope was then slowly withdrawn and removed. ESOPHAGUS: There was LA Class A esophagitis noted. STOMACH: A small angiodysplastic lesion was found in the gastric antrum. Bipolar (BICAP) cautery with a 10Fr probe was applied to the site(s) for 10 secs using 15 fishman power. Light pressure was applied to the cautery site with complete hemostasis achieved. DUODENUM: A spider-like arteriovenous malformation measuring 4mm in size was found in the 3rd part of the duodenum. Bipolar (BICAP) cautery with a 10Fr probe was applied to the site for 5 secs using 15 fishman power. Light pressure was applied to the cautery site with complete hemostasis achieved. ADVERSE EVENTS: There were no complications. IMPRESSIONS: 1. There was LA Class A esophagitis noted 2. Angiodysplastic lesion in the gastric antrum; Bipolar (BICAP) cautery with a 10Fr probe was applied to the site(s) for 10 secs; with complete hemostasis achieved 3. Arteriovenous malformation measuring 4mm in size was found in the 3rd part of the duodenum; Bipolar (BICAP) cautery with a 10Fr probe was applied to the site for 5 secs; with complete hemostasis achieved 4. Retroflexed views revealed no abnormalities RECOMMENDATIONS: 1. Continue PPI 2. Avoid NSAIDS PATIENT CONDITION: stable DISPOSITION: Inpatient REPEAT EXAM: Return 3 years EGD Ron Johnson MD eSigned: Ron Johnson MD 01/11/2017 11:11 AM cc: PATIENT NAME: Nai Cuevas MR#: [id number]
--- NOTE | 2017-01-11 11:14 | GIPROC ---
[facility] [address] [facility]. [facility] [place], [address] COLONOSCOPY PROCEDURE REPORT EXAM DATE: 01/11/2017 PATIENT NAME: Nai Cuevas MR #: [id number] BIRTHDATE: 1955 ENDOSCOPIST: Ron Johnson MD ORDER #: [id number] REBAR BENDER: Maribell Hutchins and Charmaine Inman STATUS: inpatient INDICATIONS: The patient is a 61 yr old female here for a colonoscopy due to iron deficiency anemia PROCEDURE PERFORMED: Colonoscopy with biopsy MEDICATIONS: None and Per Anesthesia. PREP QUALITY: inadequate PREP TYPE:GoLytely ESTIMATED BLOOD LOSS: None CONSENT: The patient understands the risks and benefits of the procedure and understands that these risks include, but are not limited to: sedation, allergic reaction, infection, perforation and/or bleeding. Alternative means of evaluation and treatment include, among others: physical exam, x-rays, and/or surgical intervention. The patient elects to proceed with this endoscopic procedure. medical equipment was checked for proper function. Hand hygiene and appropriate measures for infection prevention was taken. After the risks, benefits and alternatives of the procedure were thoroughly explained, Informed consent was verified, confirmed and timeout was successfully executed by the treatment team. A digital exam revealed external hemorrhoids The Pentax [id number] endoscope was introduced through the anus and advanced to the mid transverse colon. The instrument was then slowly withdrawn as the colon was fully examined. COLON FINDINGS: A polypoid shaped sessile polyp ranging between 3-5mm in size was found in the transverse colon. A biopsy was performed using cold forceps. Retroflexed views revealed internal hemorrhoids and Retroflexed views revealed medium internal hemorrhoids The scope was then completely withdrawn from the patient and the procedure terminated. ADVERSE EVENTS: There were no complications. IMPRESSIONS: 1. A sessile polyp ranging between 3-5mm in size was found in the transverse colon; biopsy was performed using cold forceps 2. Retroflexed views revealed internal hemorrhoids 3. Retroflexed views revealed medium internal hemorrhoids 4. Revealed external hemorrhoids RECOMMENDATIONS: 1. Await biopsy results. Biopsy results will not be ready for 7-10 days. If you don't hear from us in two weeks, call our office for results. 2. Continue surveillance 3. Yearly hemoccult RECALL: Return 2 weeks Colonoscopy Ron Johnson MD eSigned: Ron Johnson MD 01/11/2017 11:13 AM cc: PATIENT NAME: Nai Cuevas MR#: [id number]
[2017-01-11 12:00] VITALS: BP 144/63; PULSE 82; RESP 16; TEMP 96.8; O2SAT 95
[2017-01-11] MEDS ORDERED: GLYCOPYRROLATE 1 MG/5 ML SYRINGE IV PUSH ONE (12:00)
[2017-01-11] MEDS ORDERED: PROPOFOL 200 MG/20 ML AMP IV ONE (12:00)
[2017-01-11] MEDS ORDERED: LIDOCAINE HCL 1% PF 5 ML SYRINGE OTHER ONE (12:00)
[2017-01-11] MEDS: DULoxetine HCl DR 60 MG CAP PO SCH (12:08)
[2017-01-11] MEDS: PANTOPRAZOLE SOD 40 MG DELAYED RELEASE TAB PO SCH (12:09)
[2017-01-11] MEDS: FENOFIBRATE 48 MG TAB PO SCH (12:09)
[2017-01-11] MEDS: INSULIN DETEMIR 100 UNITS/ML VIAL SQ SCH ×2 (12:10→20:12)
[2017-01-11] MEDS ORDERED: WARF-18 PO (14:31)
[2017-01-11] MEDS ORDERED: ENOX80P SQ (15:13)
[2017-01-11] MEDS ORDERED: COUM7.5T PO (15:13)
--- NOTE | 2017-01-11 15:15 | HHI.FF ---
Face to Face Verification Diagnosis: (1) GI bleed (2) Anemia Home Health Nursing Order: Medical education Signs/symptoms of disease process Medication education-adverse effect Instructions: Please check INR in 01/14/17 and 01/16/[address] Todd Jones Patient on Lovenox bridge to Coumadin with mechanical aortic valve Stop Lovenox once INR > or equal to 2.5 I have seen patient Nai Cuevas on 01/11/17. My clinical findings support the need for the requested home health care services because: Deconditioned Deconditioned w/ increased weakness I certify that my clinical findings support that this patient is homebound because: Unsteady gait/balance Unsteady gait/balance Carmelita Murry Jan 11, 2017 15:15 Jewel Nevarez MD Jan 12, 2017 11:07
[2017-01-11 16:00] VITALS: BP 120/61; PULSE 101; RESP 16; TEMP 98.8; O2SAT 92
[2017-01-11] MEDS ORDERED: WARFARIN SOD 7.5 MG TAB PO SCH (16:00)
[2017-01-11] MEDS: PRAVASTATIN SOD 80 MG TAB PO SCH (20:11)
[2017-01-11] MEDS: CARVEDILOL 6.25 MG TAB PO SCH (20:11)
[2017-01-11] MEDS: ENOXAPARIN SODIUM 80 MG/0.8 ML SYRINGE SQ SCH (20:12)
[2017-01-11 20:20] VITALS: BP 125/64; PULSE 74; RESP 18; TEMP 99.2; O2SAT 94
[2017-01-12 00:30] VITALS: BP 95/50; PULSE 78; RESP 18; TEMP 98.9; O2SAT 94
[2017-01-12 05:36] LABS: HEMATOCRIT 23.1 % (35.0-46.0)
[2017-01-12 05:43] LABS: PROTHROMBIN TIME - PATIENT 10.6 SEC (9.8-11.6)
[2017-01-12 08:00] VITALS: BP 123/59; PULSE 90; RESP 20; TEMP 97.7; O2SAT 95
[2017-01-12] MEDS ORDERED: ENOX80P SQ (08:33)
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
--- NOTE | 2017-01-12 08:55 | HHI.DCPOC ---
Discharge Care Plan Diagnosis: (1) GI bleed (2) Anemia (3) Mechanical heart valve present Goals to Promote Your Health * To prevent worsening of your condition and complications * To maintain your health at the optimal level Directions to Meet Your Goals Take your medications as prescribed Follow your dietary instruction Follow activity as directed Keep your appointments as scheduled Take your immunizations and boosters as scheduled If your symptoms worsen call your PCP, if no PCP go to Urgent Care Center or Emergency Room Smoking is Dangerous to Your Health. Avoid second hand smoke Call the 24-hour hour crisis hotline for domestic abuse at Carmelita Murry Jan 12, 2017 08:55
[2017-01-12] MEDS: FENOFIBRATE 48 MG TAB PO SCH (09:00)
[2017-01-12] MEDS: ACETAMINOPHEN/HYDROcodone 325 MG/5 MG TAB PO PRN (09:22)
[2017-01-12] MEDS: SODIUM CHLORIDE 0.9% FLUSH 10 ML FLUSH IV FLUSH SCH (09:39)
[2017-01-12] MEDS: PANTOPRAZOLE SOD 40 MG DELAYED RELEASE TAB PO SCH (09:40)
[2017-01-12] MEDS: DULoxetine HCl DR 60 MG CAP PO SCH (09:40)
[2017-01-12] MEDS: CARVEDILOL 6.25 MG TAB PO SCH (09:40)
[2017-01-12] MEDS: INSULIN ASPART SUPPLEMENTAL SCALE SQ SCH (10:00)
[2017-01-12] MEDS: INSULIN DETEMIR 100 UNITS/ML VIAL SQ SCH (10:00)
[2017-01-12] MEDS ORDERED: FERR325T18 PO (11:07)
[2017-01-12] MEDS: ENOXAPARIN SODIUM 80 MG/0.8 ML SYRINGE SQ SCH (11:10)
== END 2017-01-12 11:56 | disposition home health service (06) | DRG 811 ==
LOC: NEPC 16:24 → NEDA 18:16 → N07A 20:07
PROVIDERS: ADMIT Hospitalist; ATTEND Hospitalist
PROC: 30233N1 Transfusion of Nonautologous Red Blood Cells into Peripheral Vein, Percutaneous Approach (ICD-10-PCS; principal; 2017-01-09)
PROC: 0D568ZZ Destruction of Stomach, Via Natural or Artificial Opening Endoscopic (ICD-10-PCS; 2017-01-11)
PROC: 0DBL8ZX Excision of Transverse Colon, Via Natural or Artificial Opening Endoscopic, Diagnostic (ICD-10-PCS; 2017-01-11)
PROC: 0D598ZZ Destruction of Duodenum, Via Natural or Artificial Opening Endoscopic (ICD-10-PCS; 2017-01-11 10:35)
DX: D62 Acute posthemorrhagic anemia (principal); K31.811 Angiodysplasia of stomach and duodenum with bleeding; E10.22 Type 1 diabetes mellitus with diabetic chronic kidney disease; E10.51 Type 1 diabetes mellitus with diabetic peripheral angiopathy without gangrene; I48.0 Paroxysmal atrial fibrillation; G89.29 Other chronic pain; M54.16 Radiculopathy, lumbar region; F41.9 Anxiety disorder, unspecified; E78.5 Hyperlipidemia, unspecified; E55.9 Vitamin D deficiency, unspecified; I12.9 Hypertensive chronic kidney disease with stage 1 through stage 4 chronic kidney disease, or unspecified chronic kidney disease; N18.2 Chronic kidney disease, stage 2 (mild); K63.5 Polyp of colon; K64.4 Residual hemorrhoidal skin tags; K64.8 Other hemorrhoids; K20.9 Esophagitis, unspecified; F09 Unspecified mental disorder due to known physiological condition; F32.9 Major depressive disorder, single episode, unspecified; F43.10 Post-traumatic stress disorder, unspecified; Z79.01 Long term (current) use of anticoagulants; Z79.4 Long term (current) use of insulin; Z83.3 Family history of diabetes mellitus; Z86.711 Personal history of pulmonary embolism; Z87.820 Personal history of traumatic brain injury; Z86.73 Personal history of transient ischemic attack (TIA), and cerebral infarction without residual deficits; Z87.891 Personal history of nicotine dependence; Z88.2 Allergy status to sulfonamides; Z95.2 Presence of prosthetic heart valve; Z96.41 Presence of insulin pump (external) (internal)
CPT/HCPCS: 36430; 80053; 81001; 82948; 85014; 85018; 85025; 85610; 85730; 86077; 86850; 86870; 86900; 86901; 86902; 86920; 86922; 88305; 93005; 99285; C9113; J1650; J1815; J2405; J7030; P9016